=== PATIENT | female | born 1980 | race Two or more races ===

== ENCOUNTER 2018-11-10 14:58 | Outpatient (CLI) | payer OTHER ==
[2018-11-10 15:41] VITALS: BP 120/80
--- NOTE | 2018-11-10 15:41 | CONSULTATION NOTE ---
Information from patient questionnaire entered by Savannah Gomez. I have reviewed and concur with the information entered by Savannah Gomez. This document represents the service I personally performed and the decisions made by me, Daniela Lino MD, [facility]. - History of Present Illness Chief Complaint: Insomnia, Unrefreshed sleep, Snoring, Excessive daytime sleepiness, Fatigue MIK GAMING was diagnosed to have mild, AHI 11.6, obstructive sleep apnea- hypopnea syndrome by [facility] in 2016 and presented today for consultation with [facility]. At first, the patient actually did not recall having had a sleep study. When presented with the results, she said she was never informed and never treated. The patient tells me that she normally goes to bed around 10:00 pm, and it takes her approximately 30 minutes to fall asleep. She has been told that she snores loudly and irregularly at night. She has not been observed to stop breathing in her sleep. Her bed partner can still sleep in the same bed. She can recall waking up on the average of 3 times during the night. She has occasionally awakened for her own snoring, choking, and having to gasp for air. There is a lot of tossing and turning in her sleep. Generally she can recall having dreams. She usually wakes up at 4:45 (7 am on ) and does not feel refreshed. She usually does have a morning headache lasting all day. During the day she complains of feeling sleepy and fatigued. She has never fallen asleep while driving nor has any accident due to sleepiness. She usually does not take naps during the day. 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 Patient is and lives in [place]. Smoked in the past 12 months: No Alcohol use: Yes Amount and frequency: 1 drink/month Caffeine use: Yes Amount and frequency: 3 cups/day - Family History Family Hx Sleep Apnea: Mother: Snoring (nobody was tested), Father: Snoring, Sibling: Snoring - Review of Systems Weight gain over past 5 years: 35 Cardiovascular: reports: high blood pressure, chest pain Respiratory: denies: shortness of breath, wheeze, sputum production, chronic cough, other: Gastrointestinal: reports: diarrhea, abdominal pain Urinary: reports: frequency Neurological: reports: headaches Ear/Nose/Throat: reports: sinus problems, nose bleeds, wisdom teeth removed Endocrine: reports: thyroid disease, sluggishness, too hot or cold, excessive thirst, increased appetite, increased urination, unexplained weakness, other: Musculoskeletal: reports: joint pain, neck pain, back pain, muscle pain or cramping, mobility problems, other: Immunologic: reports: sneezing, itching - Physical Examination Vital signs obtained and documented by: Dr. Lino Blood Pressure: 120/80 Cuff size: regular Heart Rate: 111 O2 Saturation: 96 Height: 5 ft 3 in Weight (kg): 97.522 kg Body Mass Index: 38.0 BMI Classification: Class 2 Neck circumference: 16 Mood/affect: normal HEENT: No craniofacial malformation Nostrils: patent to airflow Turbinates: normal Septum: midline Mouth and throat: narrow oropharynx Soft palate: long Hard palate: normal Uvula: normal Tongue: normal in size Tonsils: small Chin and jaw: normal size and position Neck: normal w/o lymphadenopathy or thyromegaly Heart: regular rate and rhythm Lungs: clear bilaterally Abdomen: soft, non-tender Extremities: no edema or clubbing Neurologic: intact, no focal deficits - Impression 1. Obstructive Sleep Apnea-Hypopnea Syndrome, as previously diagnosed, but not treated. She appears to be symptomatic for loud and irregular snoring, morning headache, frequent awakening during the night, unrefreshed sleep, cognitive impairment, and excessive daytime sleepiness. Narrow oropharynx and obesity are common predisposing factors for obstructive sleep apnea-hypopnea syndrome. I recommend proceeding to polysomnography to confirm the diagnosis and to assess severity. If the patient has significant sleep disordered breathing, a manual CPAP titration study will also be performed to find the optimal treatment pressure. I informed the patient of what the sleep studies involve and after some discussion, obtained agreement to proceed. The pathophysiology of obstructive sleep apnea-hypopnea syndrome was discussed with the patient and health risks of cardiovascular and cerebrovascular disease if not treated. Risks of drowsy driving discussed in detail and patient advised to avoid long distance driving and to dry chain puller at the first sign of drowsiness. Patient agreed to plan. - Plan Schedule polysomnography +- manual CPAP titration study and return in 1-2 weeks after the study to discuss result and initiate therapy. Avoid long distance driving or driving when feeling sleepy. Avoid alcohol, sedative and muscle relaxant around bedtime. Attempt to lose weight. Review instructions provided by trained office staff on how to prepare for the sleep study. [ Complete a 2 week sleep diary and return to office.] Return for follow-up after sleep study completed. I spent 100% of this [] minute visit face to face with the patient with greater than 50% of this was spent time counseling the patient and coordination of care.
== END 2018-11-10 14:59 | disposition home or self-care (01) ==
LOC: SC 14:58
PROVIDERS: ATTEND Internal Medicine Pulmonary Disease
DX: G47.33 Obstructive sleep apnea (adult) (pediatric) (principal)
CPT/HCPCS: 99203; 99212

== ENCOUNTER 2018-11-23 20:26 | Outpatient (CLI) | payer OTHER | END 2018-11-23 20:27 | disposition home or self-care (01) | LOC: SC 20:26 | PROVIDERS: ATTEND Internal Medicine Pulmonary Disease | DX: G47.33 Obstructive sleep apnea (adult) (pediatric) (principal) | CPT/HCPCS: 95810 ==

== ENCOUNTER 2018-12-10 08:52 | Outpatient (CLI) | payer OTHER ==
[2018-12-10 09:42] VITALS: BP 110/70
--- NOTE | 2018-12-10 09:42 | SLEEP CARE CONSULTATION ---
Information from patient questionnaire entered by Alexandrea Salinas. I have reviewed and concur with the information entered by Alexandrea Salinas. This document represents the service I personally performed and the decisions made by me, Margie Harrison RN, MSN, [employer] IN[employer]ATOR. History of Present Illness Initial [place] Sleepiness Scale score: 16 Current [place] Sleepiness Scale score: 15 Additional HPI information: MIK GAMING returns for follow up of the recently performed polysomnography. The patient was informed of the following polysomnography findings as noted in sleep study section of this report. I explained the pathophysiology behind obstructive sleep apnea. We then spent quite a bit of time discussing different treatment options. For mild obstructive sleep apnea, surgery and oral appliance are alternatives to nasal CPAP therapy but in moderate or severe cases, nasal CPAP is the most effective and reliable treatment. I reviewed the impact of weight changes on sleep apnea and strongly recommended losing weight. After some discussion, the patient opted to go with the nasal CPAP therapy. Nasal autoCPAP set at [id number] will be ordered with rationale explained. A manual titration study will be ordered if unable to find optimal pressure with office adjustments. I explained how CPAP machine works with sample devices [employer] Dreamstation and [employer] [id number] and what to expect when using the machine. Using CPAP every night in order to get used to it was emphasized. Patient advised to put CPAP mask on before getting into bed so as not to fall asleep without CPAP. To assist acclimation to CPAP use, it could also be used for a short time during day while reading or watching TV. The patient was instructed to call the CPAP supplier to discuss any mechanical problem that may occur. If the mask given is uncomfortable or is difficult to keep on through the night even with adjustment, contact the CPAP supplier as many will replace with another mask style if notified before 30 days. If snoring or perceives is not getting enough air or too much air from the machine, notify this office. AAS patient education PAP tips and Non Pap treatment pamphlets reviewed and given to patient. Patient counseled not drink alcohol less than 4 hours before bedtime as it can increase snoring and apnea. Patient was cautioned about risks of drowsy driving until sleepiness symptoms resolve. Patient denies drowsy driving. AAS patient education on snoring and sleep apnea given and reviewed. Sleep Study - Polysomnography Polysomnography findings: The quality of the study is good. The patient had normal sleep efficiency. The sleep architecture was normal as well. Respiratory monitoring showed mild obstructive sleep apnea- hypopnea (AHI = 14.5) associated with frequent arousals, oxyhemoglobin desaturation and mild hypoxia (javad oxygen saturation of 86%). The respiratory events occurred mainly during supine sleep (supine AHI = 21.4; non- supine = 8.91). Snore was moderate in intensity. There was no significant periodic leg movement of sleep. Cardiac rhythm was normal sinus rhythm without significant arrhythmia. No abnormal behavior (parasomnia) observed during the night. Allergies and Home Medications Known drug allergies: No Drug allergies reviewed: Yes Home medication list reviewed: Yes Allergy and home medication list: synthroid 75mcg daily Review of Systems Review of systems same as previous: Yes Physical Exam Blood Pressure: 110/70 Cuff size: long Heart Rate: 79 O2 Saturation: 98 Height: 5 ft 3 in Weight (kg): 94.71 kg Body Mass Index: 37.0 BMI Classification: Class 2 Impression and Plan 1. Obstructive Sleep Apnea-Hypopnea Syndrome, mild, with lowest oxygen saturation of 86%. Obviously this is the cause of the patients symptoms of unrefreshed sleep, and excessive daytime sleepiness. Positive pressure therapy could benefit her diabetes. As mentioned above, the patient will be started on nasal autoCPAP therapy with pressure set at 4-15 cmH2O. A manual titration study will be completed if unable to find optimal treatment pressure with office adjustments. Compliance guidelines also reviewed. A copy of compliance guidelines will be given for reference at check out. Because the apnea is more severe supine, I instructed to avoid sleeping supine using pillow positioning until able to start CPAP use. * Nasal auto CPAP therapy, pressure at 4-15 cm H2O. * Attempt to lose weight. * Avoid alcohol consumption near bedtime. * Avoid supine sleep until using CPAP. * The patient is again cautioned about driving until sleepiness completely resolves. * Return one month after CPAP obtained. I will assess response to therapy and compliance at that time. I spent 100% of this 30 minute visit face to face with the patient with greater than 50% of this was spent time counseling the patient and coordination of care.
== END 2018-12-10 08:53 | disposition home or self-care (01) ==
LOC: SC 08:52
PROVIDERS: ATTEND Nurse Practitioner Family
DX: G47.33 Obstructive sleep apnea (adult) (pediatric) (principal)
CPT/HCPCS: 99212; 99214

== ENCOUNTER 2020-09-27 12:11 | Emergency (ER) | payer OTHER ==
--- OUTSIDE RECORDS SUMMARY | 2020-09-27 12:14 | EXTERNAL MEDICAL SUMMARY RPT | Continuity of Care Document ---
:1980 Demographics Phone Unavailable Preferred Language Bhutanese Marital Status Unknown Anglican Affiliation Unknown Race Unknown Ethnic Group Unknown Author Organization [place] Address [address] [phone] Phone Allergies Encounters Medications Problems Results
[2020-09-27 12:34] LABS: BILIRUBIN,URINE NEGATIVE (NEGATIVE); GLUCOSE, URINE (UA) >=1000 mg/dL (NEGATIVE); KETONES,URINE (UA) NEGATIVE (NEGATIVE); LEUKOCYTE ESTERASE, URINE MODERATE (NEGATIVE); NITRITE,URINE POSITIVE (NEGATIVE); OCCULT BLOOD,URINE MODERATE (NEGATIVE); PH,URINE 5.5 PH (5.0-7.5); PROTEIN,URINE 100 mg/dL (NEGATIVE); UROBILINOGEN,URINE 2 E.U./dL (NORMAL)
[2020-09-27 12:35] LABS: CLARITY,URINE SL. CLOUDY (CLEAR); HCG UR QUAL NEGATIVE
[2020-09-27 12:39] LABS: AMORPHOUS SEDIMENT,UR Few /LPF; BACTERIA,URINE Many /HPF (None Seen); MUCUS,URINE Few Strands; RBC,URINE TNTC /HPF (0-5); SQUAMOUS EPITHELIAL CELL,UR FEW Squamous (<= Few); WBC,URINE >25 /HPF (0-5)
[2020-09-27 12:39] LABS: BASOPHILS % (AUTO) 0.2 %; EOSINOPHILS # (AUTO) 0.1 10^3/uL (0.0-0.7); EOSINOPHILS % (AUTO) 0.6 %; HCT - HEMATOCRIT 46.1 % (37.0-47.0); HGB - HEMOGLOBIN 15.6 g/dL (12.0-16.0); LYMPHOCYTES # (AUTO) 3.1 10^3/uL (1.5-3.5); LYMPHOCYTES % (AUTO) 27.6 %; MEAN CORPUSCULAR HEMOGLOBIN 28.7 pg (27.0-31.0); MEAN CORPUSCULAR HGB CONC 33.8 g/dL (32.0-36.0); MEAN CORPUSCULAR VOLUME 84.9 fL (81.0-99.0); MONOCYTES # (AUTO) 0.5 10^3/uL (0.0-1.0); MONOCYTES % (AUTO) 4.5 %; NEUTROPHILS # (AUTO) 7.5 10^3/uL (1.5-6.6); NEUTROPHILS % (AUTO) 66.7 %; PLT - PLATELET COUNT 277 10^3/uL (130-450); RED BLOOD COUNT 5.43 10^6/uL (4.20-5.40); RED CELL DISTRIBUTION WIDTH 12.3 % (12.0-15.0); WHITE BLOOD COUNT 11.2 x10^3/uL (4.8-10.8)
[2020-09-27 12:49] LABS: ALBUMIN 4.3 g/dL (3.2-5.5); BILIRUBIN,TOTAL 1.4 mg/dL (0.2-1.0); CALCIUM 9.6 mg/dL (8.5-10.3); CREATININE 0.7 mg/dL (0.4-1.0); POTASSIUM 3.6 mmol/L (3.5-5.0); TOTAL PROTEIN 8.6 g/dL (6.7-8.2)
[2020-09-27] MEDS ORDERED: cefTRIAXone 1 GM VIAL IVP STA (13:15)
[2020-09-27] MEDS ORDERED: KETOROLAC 30 MG/ML VIAL IVP STA (13:15)
--- NOTE | 2020-09-27 13:18 | ED Physician Documentation ---
History of Present Illness - Stated complaint Stated Complaint: ABD PX - Chief complaint Chief Complaint: Abd Pain - History obtained from History obtained from: Patient - History of Present Illness Pain level max: 7 Pain level now: 5 - Additonal information Additional information: Patient is a 39-year-old female who presents to the emergency department with 1 weeks worth of abdominal pain. She states this started suprapubic and was accompanied by dysuria and urinary frequency. She states that over the past 2 days it has spread to the right flank and she is now having chills, nausea and right flank pain. She states similar to prior UTIs. No history of ureteral stones. She is not on any medications at home. Has not taken anything for this. Worse with urination and movement, better with rest. Review of Systems Ten Systems: 10 systems reviewed and negative Constitutional: reports: Chills. 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 COMMUNICATIONS: None : None HEENT: None Psych: None Musculoskeletal: None Derm: None - Past Surgical History Past Surgical History: No - Present Medications Home Medications: Ambulatory Orders Medication Instructions Recorded Confirmed Cefdinir 300 mg PO BID #28 cap 09/27/20 HYDROcod/ACETAM 5/325 [[place] 5/325] 1 - 2 ea PO Q6H PRN #14 tablet 09/27/20 Ondansetron Odt [Zofran] 4 mg TL Q6H PRN #10 tablet 09/27/20 - Allergies Allergies/Adverse Reactions: Allergies Allergy/AdvReac Type Severity Reaction Status Date / Time No Known Drug Allergies Allergy Verified 09/27/20 12:19 - Social History Does the pt smoke?: No Smoking Status: Never smoker Does the pt drink ETOH?: No Does the pt have substance abuse?: No - Immunizations Immunizations are current?: Yes - POLST Patient has POLST: No PD ED PE NORMAL - Vitals Vital signs reviewed: Yes - General General: Alert and oriented X 3, No acute distress - HEENT HEENT: PERRL, Moist mucous membranes - Neck Neck: Supple, no meningeal sign - Cardiac Cardiac: RRR, Strong equal pulses - Respiratory Respiratory: No respiratory distress, Clear bilaterally - Abdomen Abdomen: Soft, Non distended, Other (TTP suprapubic. no peritoneal signs) - Back Back: No spinal TTP, Other (Right-sided CVA tenderness.) - Derm Derm: Warm and dry - Extremities Extremities: No edema - Neuro Neuro: Alert and oriented X 3 - Psych Psych: Normal mood, Normal affect Results - Vitals Vitals: Vital Signs - 24 hr 09/27/20 09/27/20 09/27/20 12:15 12:38 14:30 Temperature 36.8 C 37.2 C Heart Rate 113 H 112 H 104 H Respiratory 16 18 16 Rate Blood Pressure 139/83 H 120/88 H 120/65 O2 Saturation 96 97 99 Oxygen O2 Source Room air - Labs Labs: Laboratory Tests 09/27/20 09/27/20 09/27/20 12:23 12:30 12:30 WBC 11.2 H RBC 5.43 H Hgb 15.6 Hct 46.1 MCV 84.9 MCH 28.7 MCHC 33.8 RDW 12.3 Plt Count 277 MPV 11.0 H Neut # (Auto) 7.5 H Lymph # (Auto) 3.1 Person # (Auto) 0.5 Eos # (Auto) 0.1 Baso # (Auto) 0.0 Absolute Nucleated RBC 0.00 Nucleated RBC % 0.0 Sodium 134 L Potassium 3.6 Chloride 94 L Carbon Dioxide 28 Anion Gap 12.0 BUN 11 Creatinine 0.7 Estimated GFR (MDRD) 93 Glucose 289 H Calcium 9.6 Total Bilirubin 1.4 H AST 21 ALT 27 Alkaline Phosphatase 133 H Total Protein 8.6 H Albumin 4.3 Globulin 4.3 H Albumin/Globulin Ratio 1.0 Lipase 26 Urine Color ORANGE Urine Clarity SL. CLOUDY Urine pH 5.5 Ur Specific [place] 1.020 Urine Protein 100 H Urine Glucose (UA) >=1000 H Urine Ketones NEGATIVE Urine Occult Blood MODERATE H Urine Nitrite POSITIVE H Urine Bilirubin NEGATIVE Urine Urobilinogen 2 H Ur Leukocyte Esterase MODERATE H Urine RBC TNTC H Urine WBC >25 H Ur Squamous Epith Cells FEW Squamous Amorphous Sediment Few Urine Bacteria Many H Urine Mucus Few Strands Ur Microscopic Review INDICATED Urine Culture Comments INDICATED Urine HCG, Qual NEGATIVE - Rads (name of study) CT abd/pelvis Radiology: Prelim report reviewed, EMP read contemporaneously, See rad report (IMPRESSION: 1. No acute process. 2. Normal appendix. ) PD MEDICAL DECISION MAKING - ED course Complexity details: reviewed results, re-evaluated patient, considered differential, d/w patient ED course: 39-year-old female presents to the emergency department with what appears to be pyelonephritis. She was given IV Rocephin. Toradol. IV fluids. Patient is feeling better. We will place on antibiotics for home as well as pain medications. Patient will return if she fails to improve. Patient counseled regarding signs and symptoms for which I believe and urgent re-evaluation would be necessary. Patient with good understanding of and agreement to plan and is comfortable going home at this time This document was made in part using voice recognition software. While efforts are made to proofread this document, sound alike and grammatical errors may occur. Departure - Departure Disposition: 01 Home, Self Care Clinical Impression: Pyelonephritis, Hyperglycemia Condition: Good Instructions: ED Kidney Infec Female Follow-Up: your,doctor in 1 week [Other] Prescriptions: Cefdinir 300 mg PO BID #28 cap HYDROcod/ACETAM 5/325 [[place] 5/325] 1 - 2 ea PO Q6H PRN #14 tablet PRN Reason: Pain Ondansetron Odt [Zofran] 4 mg TL Q6H PRN #10 tablet PRN Reason: Nausea / Vomiting Comments: Take all antibiotics until gone. Return if you worsen. Follow-up with your doctor for further care. On a side note your blood sugar was also elevated today, follow-up with your doctor to ensure you do not have diabetes. Discharge Date/Time: 09/27/20 14:59
[2020-09-27] MEDS ORDERED: ONDANSETRON 4 MG/2 ML VIAL IVP STA (13:19)
[2020-09-27] MEDS ORDERED: SODIUM CHLORIDE 0.9% 1,000 ML IV STA (13:19)
--- OUTSIDE RECORDS SUMMARY | 2020-09-27 13:20 | EXTERNAL MEDICAL SUMMARY RPT | Continuity of Care Document ---
:1980 Demographics Phone Unavailable Preferred Language Guamanian Marital Status Unknown Catholic Affiliation Unknown Race Unknown Ethnic Group Unknown Author Organization [facility] Address [address] [phone] Phone Allergies Encounters Medications Problems Results
[2020-09-27] MEDS ORDERED: IOVERSOL 320 100 ML VIAL IVP ONE ×2 (13:25→13:42)
[2020-09-27 14:31] VITALS: BP 120/65
--- NOTE | 2020-09-27 14:40 | CT Report ---
PROCEDURE: Abdomen/Pelvis W INDICATIONS: R sided abd pain, chills CONTRAST: IV CONTRAST: Optiray 320 ml: 100 PO CONTRAST: *NO PO CONTRAST TECHNIQUE: After the administration of IV contrast, 5 mm thick sections acquired from the diaphragms to the symp hysis. 5 mm thick coronal and sagittal reformats were acquired. For radiation dose reduction, the f ollowing was used: automated exposure control, adjustment of mA and/or kV according to patient size. COMPARISON: 0 CT examination. FINDINGS: Image quality: Excellent. ABDOMEN: Lung bases: Lung bases are clear. Heart size is normal. Solid organs: Liver and spleen are normal in size and enhancement. Gallbladder is grossly unremarka ble Biliary system is non dilated. Pancreas enhances normally. No adrenal nodules. Kidneys demons trate normal size and enhancement, without hydronephrosis. Peritoneum and bowel: Bowel loops demonstrate normal wall thickness and caliber. Normal appendix. N o free fluid or air. Nodes and vessels: No retroperitoneal or mesenteric adenopathy by size criteria. Aorta and inferior vena cava are normal in size. Miscellaneous: No ventral hernias. PELVIS: Genitourinary: Bladder wall thickness is normal. Miscellaneous: No inguinal hernias or adenopathy. Bones: No suspicious bony lesions. No vertebral body compression fractures. Bilateral L5-S1 pars i nterarticularis defects. Minimal grade 1 anterolisthesis of L4 on L5. IMPRESSION: 1. No acute process. 2. Normal appendix. Reviewed by: Kaiser Vale MD on 09/27/2020 2:39 PM PDT Approved by: Kaiser Vale MD on 09/27/2020 2:39 PM PDT Station ID: [id number]
== END 2020-09-27 14:59 | disposition home or self-care (01) ==
LOC: ED 12:11
DX: N12 Tubulo-interstitial nephritis, not specified as acute or chronic (principal); E11.65 Type 2 diabetes mellitus with hyperglycemia
CPT/HCPCS: 36415; 74177; 80053; 81001; 81025; 83690; 85025; 87086; 96374; 96375; 99284; Q9967; 81003; 87181

== ENCOUNTER 2022-05-24 01:17 | Emergency (ER) | payer OTHER ==
[2022-05-24 01:53] LABS: BILIRUBIN,URINE NEGATIVE (NEGATIVE); GLUCOSE, URINE (UA) >=1000 mg/dL (NEGATIVE); KETONES,URINE (UA) NEGATIVE (NEGATIVE); LEUKOCYTE ESTERASE, URINE NEGATIVE (NEGATIVE); NITRITE,URINE NEGATIVE (NEGATIVE); OCCULT BLOOD,URINE NEGATIVE (NEGATIVE); PROTEIN,URINE NEGATIVE (NEGATIVE); UROBILINOGEN,URINE 0.2 (NORMAL) E.U./dL (NORMAL)
[2022-05-24 01:55] LABS: BASOPHILS % (AUTO) 0.4 %; EOSINOPHILS # (AUTO) 0.1 10^3/uL (0.0-0.7); EOSINOPHILS % (AUTO) 1.3 %; HCT - HEMATOCRIT 45.7 % (37.0-47.0); HGB - HEMOGLOBIN 15.2 g/dL (12.0-16.0); LYMPHOCYTES # (AUTO) 3.1 10^3/uL (1.5-3.5); LYMPHOCYTES % (AUTO) 38.5 %; MEAN CORPUSCULAR HEMOGLOBIN 28.1 pg (27.0-31.0); MEAN CORPUSCULAR HGB CONC 33.3 g/dL (32.0-36.0); MEAN CORPUSCULAR VOLUME 84.5 fL (81.0-99.0); MEAN PLATELET VOLUME 11.3 fL (7.9-10.8); MONOCYTES # (AUTO) 0.4 10^3/uL (0.0-1.0); MONOCYTES % (AUTO) 4.7 %; NEUTROPHILS # (AUTO) 4.5 10^3/uL (1.5-6.6); PLT - PLATELET COUNT 248 10^3/uL (130-450); RED BLOOD COUNT 5.41 10^6/uL (4.20-5.40); RED CELL DISTRIBUTION WIDTH 12.5 % (12.0-15.0); WHITE BLOOD COUNT 8.2 x10^3/uL (4.8-10.8)
[2022-05-24 02:02] LABS: CLARITY,URINE CLEAR (CLEAR)
[2022-05-24 02:05] LABS: HCG UR QUAL NEGATIVE
[2022-05-24 02:07] LABS: ALBUMIN/GLOBULIN RATIO 1.1 (1.0-2.2); CALCIUM 9.4 mg/dL (8.5-10.3); CREATININE 0.6 mg/dL (0.4-1.0); TOTAL PROTEIN 7.7 g/dL (6.7-8.2)
[2022-05-24] MEDS ORDERED: KETOROLAC 30 MG/ML VIAL IM STA (02:43)
--- NOTE | 2022-05-24 02:46 | ED Physician Documentation ---
History of Present Illness - Stated complaint Stated Complaint: RT PELVIC PX - Chief complaint Chief Complaint: Abd Pain - History obtained from History obtained from: Patient - Additonal information Additional information: 41-year-old woman presents with right groin pain ongoing constantly for the past 4 days with associated nausea. Patient states that she has worsening pain with walking, range of motion of the right hip, but does not remember injuring it or completing strenuous workout recently. denies fever, vag discharge or pain, urinary sx, diarrhea, vomiting. +nausea Review of Systems Constitutional: denies: Fever, Chills GI: reports: Nausea. 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 HEENT: None Psych: None Musculoskeletal: None Derm: None - Past Surgical History Past Surgical History: No - Present Medications Home Medications: Ambulatory Orders Medication Instructions Recorded Confirmed Ketorolac [Toradol] 10 mg PO Q6H PRN #20 tablet 05/24/22 Oxycodone HCl/Acetaminophen 1 each PO Q4H PRN #10 tablet 05/24/22 [Percocet 10-325 mg Tablet] - Allergies Allergies/Adverse Reactions: Allergies Allergy/AdvReac Type Severity Reaction Status Date / Time No Known Drug Allergies Allergy Verified 05/24/22 01:36 - Social History Does the pt smoke?: No Smoking Status: Never smoker Does the pt drink ETOH?: No Does the pt have substance abuse?: No - Immunizations Immunizations are current?: Yes - POLST Patient has POLST: No PD ED PE NORMAL - Vitals Vital signs reviewed: Yes - General General: Alert and oriented X 3, No acute distress, Well developed/nourished - HEENT HEENT: Atraumatic, PERRL, EOMI - Abdomen Abdomen: Other (RLQ ttp. R hip flexor and inguinal fold ttp. no palpable hernia) - Back Back: No CVA TTP - Derm Derm: Normal color Results - Vitals Vitals: Vital Signs - 24 hr 05/24/22 05/24/22 05/24/22 01:32 03:24 03:47 Temperature 36.7 C Heart Rate 101 H 85 84 Respiratory 28 H 16 16 Rate Blood Pressure 136/82 H 136/82 H 119/61 O2 Saturation 97 100 100 05/24/22 04:19 Temperature 36.7 C Heart Rate 77 Respiratory 16 Rate Blood Pressure 177/69 H O2 Saturation 97 Oxygen O2 Source Room air - Labs Labs: Laboratory Tests 05/24/22 05/24/22 05/24/22 01:45 01:45 01:45 WBC 8.2 RBC 5.41 H Hgb 15.2 Hct 45.7 MCV 84.5 MCH 28.1 MCHC 33.3 RDW 12.5 Plt Count 248 MPV 11.3 H Neut # (Auto) 4.5 Lymph # (Auto) 3.1 Hart # (Auto) 0.4 Eos # (Auto) 0.1 Baso # (Auto) 0.0 Absolute Nucleated RBC 0.00 Nucleated RBC % 0.0 Sodium 137 Potassium 4.0 Chloride 100 L Carbon Dioxide 24 Anion Gap 13.0 BUN 14 Creatinine 0.6 Estimated GFR (MDRD) 110 Glucose 370 H Calcium 9.4 Total Bilirubin 1.0 AST 21 ALT 27 Alkaline Phosphatase 128 H Total Protein 7.7 Albumin 4.0 Globulin 3.7 Albumin/Globulin Ratio 1.1 Lipase 34 Urine Color YELLOW Urine Clarity CLEAR Urine pH 6.0 Ur Specific [place] 1.020 Urine Protein NEGATIVE Urine Glucose (UA) >=1000 H Urine Ketones NEGATIVE Urine Occult Blood NEGATIVE Urine Nitrite NEGATIVE Urine Bilirubin NEGATIVE Urine Urobilinogen 0.2 (NORMAL) Ur Leukocyte Esterase NEGATIVE Ur Microscopic Review NOT INDICATED Urine Culture Comments NOT INDICATED Urine HCG, Qual 05/24/22 01:45 WBC RBC Hgb Hct MCV MCH MCHC RDW Plt Count MPV Neut # (Auto) Lymph # (Auto) Hart # (Auto) Eos # (Auto) Baso # (Auto) Absolute Nucleated RBC Nucleated RBC % Sodium Potassium Chloride Carbon Dioxide Anion Gap BUN Creatinine Estimated GFR (MDRD) Glucose Calcium Total Bilirubin AST ALT Alkaline Phosphatase Total Protein Albumin Globulin Albumin/Globulin Ratio Lipase Urine Color Urine Clarity Urine pH Ur Specific [place] Urine Protein Urine Glucose (UA) Urine Ketones Urine Occult Blood Urine Nitrite Urine Bilirubin Urine Urobilinogen Ur Leukocyte Esterase Ur Microscopic Review Urine Culture Comments Urine HCG, Qual NEGATIVE PD Medical Decision Making - ED course ED course: 41yR p/w R hip flexor pain - Most likely ligament strain. No palpable inguinal hernia on exam. Appendicitis less likely - no leukocytosis, fever, negative rovsing. however argument could be made for retrocecal appendicitis therefore CT a/p ordered to r/o appendicitis.Other differential diagnoses include septic arthritis - unlikely given normal WBC and no fever. Ovarian torsion - unlikely given pain is more in hip and thigh/buttock. Ectopic - ruled out. negative urine hcg. no concern for dka given no urine ketones, no nausea, minimal abdominal pain. CBC and abdominal panel ordered and noncontributory with exception of hyperglycemia. advised to f/u with pcp regarding elevated glucose. patient has appointment this saturday with PT and chiropracter. return precautions given. Departure - Departure Disposition: , Self Care Clinical Impression: Right inguinal pain Condition: Good Instructions: ANTI-INFLAMMATORY, General, ED Pelvic Pain [facility] Prescriptions: Oxycodone HCl/Acetaminophen [Percocet 10-325 mg Tablet] 1 each PO Q4H PRN #10 tablet PRN Reason: Pain Ketorolac [Toradol] 10 mg PO Q6H PRN #20 tablet PRN Reason: Pain Comments: You are seen in the emergency department for evaluation of pelvic pain. No emergent cause for your condition was uncovered at this time. Please follow-up with your primary care provider and with physical therapy. You did have increased blood glucose, indicating that you may need to go on medication for your diabetes. Return to the emergency department if you have other concerns or new or worsening symptoms. Electronic prescription sent to [facility] in [place].
[2022-05-24] MEDS ORDERED: SODIUM CHLORIDE 0.9% 1,000 ML IV STA (02:53)
[2022-05-24] MEDS ORDERED: KETOROLAC 15 MG/ML VIAL IVP STA (02:55)
[2022-05-24] MEDS ORDERED: KETOROLAC 15 MG/ML VIAL ONE (02:58)
[2022-05-24] MEDS ORDERED: iohexoL-300 100 ML VIAL ONE (03:16)
[2022-05-24] MEDS ORDERED: MORPHINE 2 MG/ML CARPUJECT IVP STA (03:25)
[2022-05-24] MEDS ORDERED: iohexoL-300 100 ML VIAL IVP ONE (04:07)
[2022-05-24] MEDS ORDERED: oxyCODONE/ACET 5/325 Prepack 4 PO STA (04:41)
[2022-05-24 06:06] VITALS: BP 122/73
--- NOTE | 2022-05-24 09:04 | CT Report ---
PROCEDURE: ABDOMEN/PELVIS W INDICATIONS: RLQ pain, R groin pain CONTRAST: Omni 300 100ml TECHNIQUE: After the administration of IV contrast, 5 mm thick sections acquired from the diaphragms to the symp hysis. 5 mm thick coronal and sagittal reformats were acquired. For radiation dose reduction, the f ollowing was used: automated exposure control, adjustment of mA and/or kV according to patient size. COMPARISON: 09/27/2020 and 12/12/2019. FINDINGS: Image quality: Excellent. ABDOMEN: Lung bases: Right basilar atelectasis is seen. Heart size is normal. Solid organs: Liver and spleen are normal in size and enhancement. Gallbladder is within normal swift its. Biliary system is non dilated. Pancreas enhances normally. No adrenal nodules. Kidneys demon strate normal size and enhancement, without hydronephrosis. Peritoneum and bowel: Bowel loops demonstrate normal wall thickness and caliber. Significant fecal stasis throughout the colon is seen. Appendix is visualized and is normal in size and appearance. No free fluid or air. Nodes and vessels: No retroperitoneal or mesenteric adenopathy by size criteria. Aorta and inferior vena cava are normal in size. Miscellaneous: No ventral hernias. PELVIS: Genitourinary: Bladder wall thickness is normal. Miscellaneous: No inguinal hernias or adenopathy. Bones: No suspicious bony lesions. No vertebral body compression fractures. IMPRESSION: 1. Normal appendix. No bowel obstruction or abnormal bowel wall thickening. No free fluid of free air . Mild constipation. 2. No renal stones or hydronephrosis. No discrepancies from preliminary reading. Reviewed by: Panda Pichardo MD on 05/24/2022 9:03 AM PST Approved by: Panda Pichardo MD on 05/24/2022 9:03 AM PST Station ID: [id number]
== END 2022-05-24 06:06 | disposition home or self-care (01) ==
LOC: ED 01:17
DX: R10.31 Right lower quadrant pain (principal)
CPT/HCPCS: 36415; 74177; 80053; 81003; 81025; 83690; 85025; 96374; 96375; 99283; 99284; Q9967; 81001; 87086

== ENCOUNTER 2023-02-05 23:46 | Emergency (ER) | payer OTHER ==
--- NOTE | 2023-02-06 04:25 | ED Physician Documentation ---
History of Present Illness - Stated complaint Stated Complaint: LT BODY PX - Chief complaint Chief Complaint: General - History obtained from History obtained from: Patient - Additonal information Additional information: The patient comes to the emergency department chief complaint of left rib pain for the last 5 weeks. She states it started under her left breast and has moved back toward her back. She states it is gotten worse and that the scope of the pain seems to be greater. She states it feels sore and "bruised" to the touch. She denies any trauma. No cough or shortness of breath. No rash. No fevers or chills. Patient states that she just does not know what is going on why keeps hurting. She denies any swelling or pain in her lower extremities. No other complaints at this time. 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 HEENT: None Psych: None Musculoskeletal: None Derm: None - Past Surgical History Past Surgical History: No - Present Medications Home Medications: Ambulatory Orders Medication Instructions Recorded Confirmed Ketorolac [Toradol] 10 mg PO Q6H PRN #20 tablet 05/24/22 Oxycodone HCl/Acetaminophen 1 each PO Q4H PRN #10 tablet 05/24/22 [Percocet 10-325 mg Tablet] - Allergies Allergies/Adverse Reactions: Allergies Allergy/AdvReac Type Severity Reaction Status Date / Time No Known Drug Allergies Allergy Verified 02/05/23 23:55 - Social History Does the pt smoke?: No Smoking Status: Never smoker Does the pt drink ETOH?: No Does the pt have substance abuse?: No - Immunizations Immunizations are current?: Yes - POLST Patient has POLST: No PD ED PE NORMAL - Vitals Vital signs reviewed: Yes - General General: Alert and oriented X 3, No acute distress, Well developed/nourished - HEENT HEENT: Atraumatic, PERRL, EOMI, Moist mucous membranes - Neck Neck: Supple, no meningeal sign - Cardiac Cardiac: RRR, No murmur - Respiratory Respiratory: No respiratory distress, Clear bilaterally - Abdomen Abdomen: Soft, Non tender, Non distended - Derm Derm: Normal color, Warm and dry, No rash - Extremities Extremities: No deformity, No edema, No calf tenderness / cord - Neuro Neuro: Alert and oriented X 3, Other (Grossly intact) - Psych Psych: Normal mood, Normal affect - Free text exam Free text exam: Tenderness palpation over left anterior, lateral, and posterior rib cage around the ribs 6 distribution. No skin changes. No edema. No palpable deformity. No crepitus. Results - Vitals Vitals: Vital Signs - 24 hr 02/05/23 02/06/23 02/06/23 23:55 03:07 05:30 Temperature 36.5 C 36.7 C 37.1 C Heart Rate 90 97 83 Respiratory 16 16 20 Rate Blood Pressure 140/90 H 114/72 115/69 O2 Saturation 98 99 93 Oxygen O2 Source Room air - Rads (name of study) XR L ribs/chest Relevant Findings:: Final report received, See rad report (neg) PD Medical Decision Making - ED course Complexity details: reviewed results, re-evaluated patient, considered differential, d/w patient ED course: The patient had presented with atraumatic pain over her left rib cage around the sixth rib distribution. She was worked up with a left ribs and chest x-ray series, which was negative. I discussed with her that I am not exactly sure what is causing her pain but there is no serious or emergent conditions been identified. We have discussed the need for follow-up if symptoms persist more than a couple of weeks and we have also discussed symptomatic management at home.. Departure - Departure Disposition: 01 Home, Self Care Clinical Impression: Chest wall pain Condition: Stable Instructions: ED Chest Pain Costochondritis Comments: Your x-ray series looks great. There is no evidence of any problem with your ribs or lungs or any of the vital organs within your chest. It is not exactly clear what set off the pain in your ribs, but there is no evidence of a serious or emergent condition. Most likely, the source is in the soft tissues of the structure of your chest wall. Additionally have a nerve running underneath each rib, and these can sometimes be the culprit. You may follow-up with your primary doctor as needed. Forms: PCP List Discharge Date/Time: 02/06/23 05:32
[2023-02-06 05:33] VITALS: BP 115/69; O2SAT 93
--- NOTE | 2023-02-06 08:23 | XRAY Report ---
PROCEDURE: Ribs w/PA Chest LT INDICATIONS: L rib pain, worsening TECHNIQUE: 2 views of the left ribs were acquired, along with a single view chest. COMPARISON: None. FINDINGS: Surgical changes and devices: None. Bones and chest wall: No fractures or dislocations. No suspicious bony lesions. Overlying soft tis sues appear unremarkable. Lungs and pleura: No pleural effusions or pneumothorax. Lungs appear clear. Mediastinum: Mediastinal contours appear normal. Heart size is normal. IMPRESSION: No displaced rib fracture or pneumothorax. Reviewed by: Fabrizio Hall on 02/06/2023 8:22 AM PDT Approved by: Fabrizio Hall on 02/06/2023 8:22 AM PDT Station ID: [id number]
== END 2023-02-06 05:32 | disposition home or self-care (01) ==
LOC: ED 23:46
DX: R07.89 Other chest pain (principal)
CPT/HCPCS: 99283

== ENCOUNTER 2023-07-12 08:00 | Outpatient (CLI) | payer OTHER ==
--- NOTE | 2023-07-12 09:06 | Ultrasound Report ---
PROCEDURE: Abdomen Limited INDICATIONS: ABD PAIN TECHNIQUE: Real-time focused scanning was performed of the abdomen, with image documentation. COMPARISONS: None. FINDINGS: Pancreas: Visualized portions of the pancreas are sonographically normal. Left kidney: Normal in size and echotexture. Left kidney measures 11.89 cm long. No hydronephrosis or nephrolithiasis. No solid masses. No complex renal cystic lesions which require follow-up. Spleen: Spleen measures 9.45 x 3.42 x 4.04 cm in size. No discrete splenic lesion. Miscellaneous: No free abdominal fluid. IMPRESSION: Unremarkable ultrasound examination of spleen, left kidney and visualized portion of pancreas. Reviewed by: Panda Pichardo MD on 07/12/2023 9:05 AM PDT Approved by: Panda Pichardo MD on 07/12/2023 9:05 AM PDT Station ID: [id number]
== END 2023-07-12 08:01 | disposition home or self-care (01) ==
LOC: DI 08:00
PROVIDERS: ATTEND Family Medicine
DX: R10.9 Unspecified abdominal pain (principal)